=== PATIENT | female | born 1940 | race Caucasian/White ===

== ENCOUNTER 2017-03-11 06:21 | Day surgery (SDC) | payer MEDICARE, OTHER ==
[2017-03-10 15:12] VITALS: BMI 21.9
[2017-03-11] MEDS ORDERED: EPINEPHrine 1 MG/ML AMP ONE (06:59)
[2017-03-11 07:00] LABS: Hematocrit 30.2 % (36.0-47.0)
[2017-03-11] MEDS ORDERED: Fentanyl 100 MCG/2 ML VIAL ONE (07:03)
[2017-03-11 07:22] LABS: Anion Gap 15 mmol/L (10-20); BUN (Urea Nitrogen) 18 mg/dL (9.8-20.1); Calc. Creatinine Clearance 32 mL/min (70-130); Calcium 9.8 mg/dL (7.8-10.44); Carbon Dioxide 23 mmol/L (23-31); Chloride 101 mmol/L (98-107); Estimated GFR-MDRD 40
[2017-03-11] MEDS ORDERED: Midazolam HCl 2 mg/2 ml Vial ONE (07:25)
[2017-03-11] MEDS ORDERED: Propofol 200 MG/20 ML VIAL ONE (07:31)
[2017-03-11] MEDS ORDERED: Albuterol Sulfate HFA (OR ONLY) ONE (07:31)
[2017-03-11] MEDS ORDERED: Labetalol HCl 100 MG/20 ML SYR ONE (07:31)
[2017-03-11] MEDS ORDERED: Succinylcholine Chloride 20 MG/ML 10 ml SYRINGE FS ONE (07:31)
[2017-03-11] MEDS ORDERED: Ondansetron HCl/PF 4 MG/2 ML Vial ONE (07:31)
[2017-03-11] MEDS ORDERED: Metoclopramide HCl 10 MG/2 ML VIAL ONE (07:31)
[2017-03-11] MEDS ORDERED: Lidocaine 2% PF 10 ML AMP (For Epidural Use) ONE (07:31)
--- NOTE | 2017-03-11 16:58 | OP ---
PREOPERATIVE DIAGNOSES: 1. Right vocal cord nodule. 2. Dysphonia. POSTOPERATIVE DIAGNOSES: 1. Right vocal cord nodule. 2. Dysphonia. PROCEDURES: Microsuspension direct laryngoscopy with biopsies. SURGEON: Augie Dexter M.D. ESTIMATED BLOOD LOSS: 0 mL. COMPLICATIONS: None. ANESTHESIA: GETA. DESCRIPTION OF THE PROCEDURE: The patient was taken to the operating room and placed supine on the table. General endotracheal anesthesia was obtained by the Anesthesia staff. Rachael jet ventilat ion tube was then placed in the below the level of the vocal cords and was secured in the left lower lip. The head of bed was turned 90 degrees, a shoulder roll was placed and the operating microscop e was then brought into the field. The Dedo laryngoscope was used to visualize the larynx and patie nt was placed in suspension. The operating microscope with a 400 mm lens was then used to visualize the vocal cords bilaterally on the right middle third with 8 mm firm nodule growing on the medial s urface of the vocal cords using the microlaryngeal scissors and microlaryngeal forceps, this lesion was excised. Ephedrine soaked pledget was allowed to rest in this area for approximately 3 minutes. There was no further bleeding or edema. The patient tolerated the procedure well.
--- NOTE | 2017-03-12 09:06 | EKG ---
Test Reason : PREOP Blood Pressure : / mmHG Vent. Rate : 069 BPM Atrial Rate : 069 BPM P-R Int : 152 ms QRS Dur : 156 ms QT Int : 474 ms P-R-T Axes : 068 012 101 degrees QTc Int : 507 ms Normal sinus rhythm Left bundle branch block Abnormal ECG No previous ECGs available Confirmed by MARTHA RABAGO ([id number]) on 03/12/2017 9:05:37 AM Referred By: GARCIA Confirmed By:MARTHA RABAGO
== END 2017-03-11 10:30 | disposition home or self-care (01) ==
LOC: SDC 06:21
PROVIDERS: ATTEND Otolaryngology Plastic Surgery within the Head & Neck
PROC: 0CBT8ZZ Excision of Right Vocal Cord, Via Natural or Artificial Opening Endoscopic (ICD-10-PCS; principal; 2017-03-11)
DX: J38.3 Other diseases of vocal cords (principal); I25.2 Old myocardial infarction; F32.9 Major depressive disorder, single episode, unspecified; G47.9 Sleep disorder, unspecified; G57.93 Unspecified mononeuropathy of bilateral lower limbs; M79.7 Fibromyalgia; I11.0 Hypertensive heart disease with heart failure; I50.9 Heart failure, unspecified; J44.9 Chronic obstructive pulmonary disease, unspecified; M19.90 Unspecified osteoarthritis, unspecified site; D64.9 Anemia, unspecified; E03.9 Hypothyroidism, unspecified; Z79.82 Long term (current) use of aspirin; Z79.899 Other long term (current) drug therapy; Z95.818 Presence of other cardiac implants and grafts; Z90.89 Acquired absence of other organs
CPT/HCPCS: 36415; 80048; 85014; 85018; 88305; 93005; 93010; J0131; J0171; J2001; J2250; J2405; J2704; J2765; J3010